=== PATIENT | male | born 1980 | race Caucasian/White ===

== ENCOUNTER 2018-10-14 10:08 | Inpatient (IN) | payer OTHER ==
[~2018-10-14] VITALS: Ht 172.7 cm; Wt 116.9 kg
[2018-10-14] MEDS ORDERED: PRAZ5CAP PO (10:23)
[2018-10-14] MEDS ORDERED: ZOLO100T PO (10:23)
[2018-10-14 11:16] LABS: HEMOGLOBIN 15.4 g/dl (13.5-17.5); MEAN CORPUSCULAR HGB CONC 33.5 g/dl (32.0-36.5); MEAN CORPUSCULAR VOLUME 89.5 fl (80.0-96.0); PLATELET COUNT, AUTOMATED 232 10^3/uL (150-450); RED BLOOD COUNT 5.14 10^6/uL (4.30-6.10)
[2018-10-14 11:37] LABS: ACETAMINOPHEN LEVEL < 2.0 UG/ML (10.0-30.0); ALBUMIN 4.4 GM/DL (3.2-5.2); ALT/SGPT 38 U/L (12-78); BILIRUBIN,DIRECT 0.1 MG/DL (0.0-0.2); BILIRUBIN,TOTAL 0.6 MG/DL (0.2-1.0); BLOOD UREA NITROGEN 16 MG/DL (7-18); CALCIUM LEVEL 9.1 MG/DL (8.5-10.1); CARBON DIOXIDE LEVEL 26 MEQ/L (21-32); CHLORIDE LEVEL 107 MEQ/L (98-107); CREATININE FOR GFR 1.08 MG/DL (0.70-1.30); ETHYL ALCOHOL (ETHANOL) < 0.003 % (0.000-0.010); GLOMERULAR FILTRATION RATE > 60.0 (>60); GLUCOSE, FASTING 94 MG/DL (70-100); POTASSIUM SERUM 4.2 MEQ/L (3.5-5.1); SALICYLATE LEVEL 1.9 MG/DL (5.0-30.0); SODIUM LEVEL 139 MEQ/L (136-145); THYROID STIMULATING HORMONE 0.986 uIU/ML (0.358-3.740); TOTAL PROTEIN 7.5 GM/DL (6.4-8.2)
[2018-10-14 11:41] LABS: AMPHETAMINES LEVEL URINE NEGATIVE (NEGATIVE); BARBITURATES URINE NEGATIVE (NEGATIVE); BENZODIAZEPINES URINE NEGATIVE (NEGATIVE); CANNABINOIDS URINE NEGATIVE (NEGATIVE); COCAINE METABOLITE URINE NEGATIVE (NEGATIVE); METHADONE URINE NEGATIVE (NEGATIVE); OPIATES URINE NEGATIVE (NEGATIVE); PHENCYCLIDINE URINE NEGATIVE (NEGATIVE)
[2018-10-14] MEDS ORDERED: MOM 30ML SUSPENSION UDC PO PRN (14:00)
[2018-10-14] MEDS ORDERED: traZODone 50 MG TAB PO PRN (14:00)
[2018-10-14] MEDS ORDERED: ACETAMINOPHEN TAB 650MG DOSE (2X325MG) PO PRN (14:00)
[2018-10-14] MEDS ORDERED: MAALOX 30 ML SUSP *UDC PO PRN (14:00)
[2018-10-14] MEDS ORDERED: IBUP200C28 PO (16:08)
[2018-10-14] MEDS: PRAZOSIN 1 MG CAP PO SCH (20:06)
[2018-10-14] MEDS: IBUPROFEN 800 MG TAB PO PRN (20:07)
[2018-10-14] MEDS ORDERED: SERTRALINE HCL 50 MG TAB PO SCH (21:00)
--- NOTE | 2018-10-15 01:10 | HPEPDOC ---
General Date of Admission Oct 14, 2018 at 13:55 Attending Physician: BASHIR ARCE MD Chief Complaint The patient is a 37-year-old male admitted with a reason for visit of E. History of Present Illness HOSPITALIST CONSULT 37-year-old generally healthy male with history of mood disorder is admitted to [facility] for concern of suicidal ideation per comments he reportedly made earlier today at his PCP office. Hospitalist was called to follow along for medical management. At the time of exam, he denies any other complaints, and states "I feel fine." Currently, he is denying any thoughts to harm himself or anyone else. Denies any recent illnesses or changes in meds. All ROS negative. 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[employer] A-FIB History Current/History of A-Fib/PAF?: No Review of Systems Other systems Constitutional: Denies fever, chills, wt loss Eyes: Denies eye pain, vision change ENT: Denies headaches, ear pain, dysphagia Skin: Denies any rashes or lesions Pulmonary: Denies dyspnea, cough, wheezing Cardiac: Denies chest pain, palpitations, edema, lightheadedness GI: Denies nausea, vomiting, abdominal pain, changes in bowel, or blood loss Endocrine: Denies heat or cold intolerance MSK: Denies new pains or aches Psych: denies thoughts of harming self or others currently Physical Examination Other physical findings General exam: Alert and cooperative, A&O 3, NAD Eye exam: PERRLA, EOMI ENT: Atraumatic, normocephalic, mucous membranes moist Neck: Supple Cardiac: RRR, normal S1 & S2, no murmurs Respiratory: CTAB, good air exchange, no wheezing, rhonchi, or rales Abdomen: soft, nontender, nondistended Extremity: able to ambulate and move all extremities independently Skin: Oxly, warm, dry, no visible rash or lesions Neuro: no focal deficits Psych: Normal mood and affect, good eye contact Vital Signs Vital Signs Date Time Temp Pulse Resp B/P (MAP) Pulse Ox O2 Delivery O2 Flow Rate FiO2 10/14/18 20:06 138/86 10/14/18 16:31 64 18 97 10/14/18 10:14 97.8 Laboratory Data Labs 24H Laboratory Tests 2 10/14/18 10:58: Nucleated Red Blood Cells % (auto) 0.0, Anion Gap 6L, Glomerular Filtration Rate > 60.0, Calcium Level 9.1, Aspartate Amino Transf (AST/SGOT) 21, Alanine Aminotransferase (ALT/SGPT) 38, Alkaline Phosphatase 90, Total Bilirubin 0.6, Direct Bilirubin 0.1, Total Protein 7.5, Albumin 4.4, Albumin/Globulin Ratio 1.42, Thyroid Stimulating Hormone (TSH) 0.986, Salicylates Level 1.9L, Urine Amphetamines Screen NEGATIVE, Urine Benzodiazepines Screen NEGATIVE, Urine Opiates Screen NEGATIVE, Urine Methadone Screen NEGATIVE, Acetaminophen Level < 2.0L, Urine Barbiturates Screen NEGATIVE, Urine Phencyclidine Screen NEGATIVE, Urine Cocaine Metabolite Screen NEGATIVE, Urine Cannabinoids Screen NEGATIVE, Ethyl Alcohol Level < 0.003 CBC/BMP Laboratory Tests 10/14/18 10:58 Red Blood Count 5.14, Mean Corpuscular Volume 89.5, Mean Corpuscular Hemoglobin 30.0, Mean Corpuscular Hemoglobin Concent 33.5, Red Cell Distribution Width 12.6 Assessment/Plan 37 yo M admitted for possible suicidal ideation: 1. Mood disorder: to be managed as per Psych 2. Pt has no other medical conditions. Vitals and labs are stable WNL. DVT ppx: encourage ambulation Thank you for involving us in the care of this interesting patient. We will follow along. Plan / VTE VTE Prophylaxis Ordered?: Yes GME ATTESTATION GME ATTESTATION My faculty preceptor for this patient encounter was physically present during the encounter and was fully available. All aspects of the patient interview, examination, medical decision making process, and medical care plan development were reviewed and approved by the faculty preceptor. The faculty preceptor is aware and concurs with the plan as stated in the body of this note and will attest to such by his/her cosignature. SOPHIE BINGHAM DO Oct 14, 2018 23:08
[2018-10-15 06:24] VITALS: BP 130/84
[2018-10-15] MEDS: IBUPROFEN 800 MG TAB PO PRN (07:54)
--- NOTE | 2018-10-15 11:44 | MHHPEPDOC ---
General Date Of Admission: Oct 14, 2018 Legal Status: 9.39 Chief Complaint "I'm skating thru live wishes I wasn't here." History of Present Illness HISTORY OF THE PRESENT ILLNESS: Patient is a 37 -year-old , AD, male, with a psych history of PTSD and TBI s/p deployment to [place] who was sent by [facility] after seen by Dr. David endorsing SI with plan to hang himself secondary to increased family stress at home with his and recently being told he is med boarded out of the causing him to feel unsure if he's safe even though he has a safety plan. Pt per ED, endorsing fleeting thoughts of SI for the past 3 days that he anabelle with thru thinking of his kids. He denied tho ughts to hang himself. Pt per ED has been going to [facility] since 2018 and was started on zoloft that he states is causing wt gain and would like adjusted. He denied HI, hallucinations, delusions. Psychiatric Review of Systems Depression (2 or more weeks): depressed mood, difficulty concentrating, suicidal thoughts Brielle (4 or more days of): denies Psychosis: denies PTSD: history of trauma, nightmares and flashbacks, intrusive memories, hypervigilance, avoidance of triggers, mood fluctuations Anxiety: situational anxiety, stressor related anxiety Anxiety/ 6 months or more of: restlessness, keyed up, difficulty concentrating, irritability Past Psychiatric History Previous Psychiatric Diagnosis: PTSD, TPI Previous Psychiatric Admissions: denies Suicide Attempts: denies Psychiatric Follow-up: [facility] Psychiatric Medications: zoloft 100mg daily causing wt gain, prazosin 5mg qhs Past Medical History Medical Problems TBI 2010 lt shoulder sx 2018 lt knee 2014 Head Injury: Yes Seizures: No Hospitalizations: No Surgeries: Yes Family Medical/Psychiatric HX Medical Problems noncontributory Psychiatric Disorders: No Addiction: No Suicide Attemps/Completions: No Addiction History denies Social History Childhood: Born and raised in [place], parents never and spent 50% of time between mother and father. Good childhood, grew up [place] farm. Abuse/Trauma: 3 deployments, suffered TBI 2010 on deployment [place] (3 total there back to back). States "say bodies all over." Denies childhood trauma Current Living Situation: lives with and kids Education: high school grad. 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, E6, transmission line engineer Social Support: mother, stepmother, family , Legal: denies Marital: , 1 son 5y/o and a daughter 3y/o Mental Status Examination General Appearance: well groomed, appears stated age, hospital scubs/clothing Build: overweight Demeanor: average Eye Contact: average Activity: average, anxious Behavior: cooperative Speech: clear, reg/rate,rhythm,volume Mood: depressed, anxious Mood "ok" Affect: full, anxious Thought Process: logical/linear, depressed, intact Thought Content (Delusions): none reported, denies SI, HI, AVH Thought Content (Other): none reported, appropriate Thought Content (Aggressive): none reported Perception (Hallucinations): none reported Perception (Other): none reported Cognition (Impairment of): none reported Cognition(Intelligence Est.): average Oriented: Awake, Alert, Oriented times three Insight: fair Judgment: Fair Psychosis: Denies Diagnoses PTSD Depression Unspecified Hx of TBI A-FIB/[facility] A-FIB History Current/History of A-Fib/PAF?: No Current Oral Anticoagulant The: No Treatment Treatment ordered: NONE Reason Anticoagulant not given: Not indicated/[id number] Assessment Pt seen and states he's here b/c "Dr. David thought I needed a higher level of care b/c he wasn't sure I could follow my safety plan b/c I was having fleeting SI starting in April but I'm been journalling and that has been helping." States he's been working with Dr. Quiñones to adjust his meds. Denies that he was having thoughts of hanging himself but was answering a depression survey about past feelings/thoughts and thinks he may have answered yes to thinking of ways to harm himself but denied he had any intent. States he feels ok today and denies SI/HI. Discussed med adjustments and states he has been put on abilify and welbutrin in the past for wt loose and ED but didn't like either. Discussed side effects of SSRIs and that prozac is an option to change him to that is more likely to decrease appetite and weight. Agreeable to switching zoloft to prozac. Denies SI/HI, hallucinations, delusions. Feels safe here. Initial Treatment Plan 1. Patient was admitted on a 9.39 status. 2. Complete history was obtained. 3. With patients permission, family will be contacted and database will be expanded. 4. Patients medication regimen will be reviewed and changed accordingly. 5. Patient will be provided with protected environment. 6. Patient will be treated with individual, group, and milieu therapies. 7. Patient will receive supportive psych-education. 8. Discharge planning will commence immediately. 9. Outpatient follow-up treatment will be strongly recommended. 10. The initial treatment plan will focus initially on: * Depression. * Risk for suicide. * Substance abuse. 11. restart prazosin 5mg qhs. D/c zoloft due to wt gain and fatigue and start prozac 40mg daily (risks/benefits discussed) Start vistaril 25mg q6hr prn anxiety, trazodone 50mg qhs prn insomnia ESTIMATED LENGTH OF STAY: 5-7 DAYS. TIME SPENT COUNSELING AND COORDINATING INITIAL CARE: 60 minutes. Vital Signs Vital Signs Date Time Temp Pulse Resp B/P (MAP) Pulse Ox O2 Delivery O2 Flow Rate FiO2 10/15/18 06:24 99.3 78 18 130/84 (99) 10/14/18 16:31 97 Laboratory Data 24H Labs Laboratory Tests 2 10/14/18 10:58: Nucleated Red Blood Cells % (auto) 0.0, Anion Gap 6L, Glomerular Filtration Rate > 60.0, Calcium Level 9.1, Aspartate Amino Transf (AST/SGOT) 21, Alanine Aminotransferase (ALT/SGPT) 38, Alkaline Phosphatase 90, Total Bilirubin 0.6, Direct Bilirubin 0.1, Total Protein 7.5, Albumin 4.4, Albumin/Globulin Ratio 1.42, Thyroid Stimulating Hormone (TSH) 0.986, Salicylates Level 1.9L, Urine Amphetamines Screen NEGATIVE, Urine Benzodiazepines Screen NEGATIVE, Urine Opiates Screen NEGATIVE, Urine Methadone Screen NEGATIVE, Acetaminophen Level < 2.0L, Urine Barbiturates Screen NEGATIVE, Urine Phencyclidine Screen NEGATIVE, Urine Cocaine Metabolite Screen NEGATIVE, Urine Cannabinoids Screen NEGATIVE, Ethyl Alcohol Level < 0.003 CBC/BMP Laboratory Tests 10/14/18 10:58 Red Blood Count 5.14, Mean Corpuscular Volume 89.5, Mean Corpuscular Hemoglobin 30.0, Mean Corpuscular Hemoglobin Concent 33.5, Red Cell Distribution Width 12.6 Medications Scheduled Prazosin Hcl (Prazosin HCl) 5 Mg Capsule, 5 MG PO QHS, (Reported) Sertraline Hcl (Zoloft) 100 Mg Tablet, 150 MG PO QHS, (Reported) Scheduled PRN Ibuprofen (Ibuprofen) 200 Mg Capsule, 800 MG PO TID PRN for PAIN, (Reported) Allergies Coded Allergies: No Known Allergies (Unverified , 10/14/18) LISSA MORRISON DO Oct 15, 2018 11:11 am
[2018-10-15] MEDS ORDERED: FLUoxetine 20 MG CAP PO ONE (11:45)
[2018-10-15 18:12] VITALS: BP 141/81
[2018-10-15] MEDS: PRAZOSIN 1 MG CAP PO SCH (20:26)
[2018-10-16 06:12] VITALS: BP 145/74
[2018-10-16] MEDS: FLUoxetine 20 MG CAP PO SCH (08:54)
[2018-10-16] MEDS: IBUPROFEN 800 MG TAB PO PRN (08:55)
[2018-10-16] MEDS ORDERED: traZODone 100 MG TAB PO PRN (16:00)
[2018-10-16 18:28] VITALS: BP 128/75
[2018-10-16] MEDS: PRAZOSIN 1 MG CAP PO SCH (20:39)
[2018-10-16 20:54] VITALS: BP 137/83
[2018-10-17 06:25] VITALS: BP 123/60
[2018-10-17] MEDS: IBUPROFEN 800 MG TAB PO PRN ×2 (08:16→21:04)
[2018-10-17] MEDS: FLUoxetine 20 MG CAP PO SCH (08:16)
[2018-10-17 18:42] VITALS: BP 140/72
[2018-10-17 21:05] VITALS: BP 137/94
[2018-10-17] MEDS: PRAZOSIN 1 MG CAP PO SCH (21:05)
[2018-10-18 06:43] VITALS: BP 122/59
[2018-10-18] MEDS: FLUoxetine 20 MG CAP PO SCH (09:10)
[2018-10-18] MEDS: IBUPROFEN 800 MG TAB PO PRN (09:12)
[2018-10-18] MEDS ORDERED: FLUO20CA19 PO (09:20)
[2018-10-18] MEDS ORDERED: TRAZ10TA PO (09:20)
[2018-10-18] MEDS ORDERED: PRAZ5CAP PO (09:20)
--- NOTE | 2018-10-18 09:20 | MHDSPDOC ---
[facility] Discharge Summary Discharge Summary DATE OF ADMISSION: Oct 14, 2018 at 1:55 pm DATE OF DISCHARGE: October 18, 2018 DISCHARGE DIAGNOSES: PTSD Depression Unspecified Hx of TBI REASON FOR ADMISSION: Patient is a 37 -year-old , AD, male, with a psych history of PTSD and TBI s/p deployment to [place] who was sent by [facility] after seen by Dr. David endorsing SI with plan to hang himself secondary to increased family stress at home with his and recently being told he is med boarded out of the causing him to feel unsure if he's safe even though he has a safety plan. Pt per ED, endorsing fleeting thoughts of SI for the past 3 days that he anabelle with thru thinking of his kids. He denied thoughts to hang himself. Pt per ED has been going to [facility] since 2018 and was started on zoloft that he states is causing wt gain and would like adjusted. He denied HI, hallucinations, delusions. CONSULTANTS INVOLVED: none TREATMENT AND PROGRESS ON THE UNIT : Pt was admitted to [facility], seen for psychiatric assessment and his outpatient zoloft due to side effect of weight gain and he was started on prozac 40mg daily for mood that he found very beneficial and tolerated well. He was continued on his outpatient prazosin for nightmares. He was provided vistaril 100mg q6hr prn anxiety and [id number] qhs prn insomnia. Pt found his medications beneficial and tolerated them well. He attended groups daily during his stay. His symptoms improved with treatment. On day of discharge he denied depression, anxiety, insomnia, SI/HI, hallucinations, delusions. He was discharged home after Binh meeting with follow-up at [facility]. He felt safe for discharge. DISCHARGE ASSESSMENT: Pt seen and states feels good and is really finding prozac beneficial and is tolerating it well w/o side effects. States he's been attending groups and finding it beneficial. Sleeping well at night. Appetite is good. Denies depression, anxiety, insomnia, SI/HI, hallucinations, delusio ns. Feels safe to be discharged home with his Binh. MENTAL STATUS EXAMINATION ON DISCHARGE: General Appearance: well groomed, appears stated age, hospital scrubs/clothing Build: overweight Demeanor: average Eye Contact: average Activity: average Behavior: cooperative Speech: clear, reg/rate,rhythm,volume Mood: euthymic, full Mood "good" Affect: full, euthymic Thought Process: logical/linear, intact Thought Content (Delusions): none reported, denies SI, HI, AVH Thought Content (Other): none reported, appropriate Thought Content (Aggressive): none reported Perception (Hallucinations): none reported Perception (Other): none reported Cognition (Impairment of): none reported Cognition(Intelligence Est.): average Oriented: Awake, Alert, Oriented times three Insight: good Judgment: good Psychosis: Denies MEDICATIONS ON DISCHARGE: prazosin 5mg qhs prozac 40mg daily vistaril 100mg q6hr prn anxiety trazodone 50mg qhs prn insomnia PLAN/FOLLOWUP ARRANGEMENTS: D/c home with [facility] with follow-up at [facility]. The amount of time spent in the coordination of care for this patient was approximately 30 minutes. Vital Signs/I&Os Vital Signs Date Time Temp Pulse Resp B/P (MAP) Pulse Ox O2 Delivery O2 Flow Rate FiO2 10/18/18 06:43 98.8 68 14 122/59 (80) 10/14/18 16:31 97 Medications Scheduled Prazosin Hcl (Prazosin HCl) 5 Mg Capsule, 5 MG PO QHS, (Reported) Sertraline Hcl (Zoloft) 100 Mg Tablet, 150 MG PO QHS, (Reported) Scheduled PRN Ibuprofen (Ibuprofen) 200 Mg Capsule, 800 MG PO TID PRN for PAIN, (Reported) Allergies Coded Allergies: No Known Allergies (Unverified , 10/14/18) LISSA MORRISON DO Oct 18, 2018 9:20 am
--- NOTE | 2018-10-19 10:07 | MHIPN ---
DATE OF SERVICE: 10/16/2018 The patient today states that he is doing better. He says he is not feeling depressed. He denies suicidal ideations. He feels that the medications "is working." He says that he did not sleep well even with his prazosin. He said he tried trazodone 50 mg the first night and felt that it was ineffective. He denies suicidal ideation. At this point will continue to monitor the patient for continued elevation and stabilization of mood and for continued resolution of suicidal ideation. MENTAL STATUS EXAM: The patient is alert, oriented times three. Eye contact is fairy good, verbally spontaneous. There is no formal thought disorder noted. Mood is good, affect is full range and appropriate. He is not psychotic, suicidal or homicidal. Concentration and memory is good. Insight and judgment good. DIAGNOSES: Post traumatic stress disorder, unspecified depressive disorder. TREATMENT PLAN: At this point will continue to monitor the patient for continued elevation and stabilization of his mood, and continue resolution of suicidal ideation. MEG
--- NOTE | 2018-10-19 21:42 | MHIPN ---
DATE: 10/17/2018 Patient today states "I'm doing good." He says he does not like the high dose of the trazodone 100 mg that he took last night. He says that he felt like it was working against his Prazosin and so he really does not want to try the trazodone anymore. MENTAL STATUS EXAMINATION: He is alert and oriented times three. Pleasant, cooperative, verbally spontaneous. Eye contact is fairly good. There is no formal thought disorder noted. His mood is good. Affect is full range and appropriate. He is not psychotic, suicidal or homicidal. Concentration is fair. Insight and judgment is fair. DIAGNOSES: 1. Posttraumatic stress disorder (PTSD). 2. Unspecified depression. TREATMENT PLAN: We will continue to monitor the patient for continued elevation and stabilization of his mood and continued resolution of suicidal ideation.
== END 2018-10-18 09:30 | disposition home or self-care (01) | DRG 882 ==
LOC: M ED 10:08 → M PSY 13:55
PROVIDERS: ADMIT Psychiatry & Neurology Psychiatry; ATTEND Psychiatry & Neurology Psychiatry
DX: F43.10 Post-traumatic stress disorder, unspecified (principal); F32.9 Major depressive disorder, single episode, unspecified; Z87.820 Personal history of traumatic brain injury; Z91.82 Personal history of military deployment; Z79.899 Other long term (current) drug therapy